=== PATIENT | male | born 1970 | race Caucasian/White ===

== ENCOUNTER 2021-06-24 08:27 | Outpatient (CLI) | payer OTHER, SELFPAY ==
--- NOTE | 2021-06-24 08:15 | XR_ITS ---
WS: [id number] XR KUB [id number] REASON FOR EXAM: UROLITHIASIS FINDINGS: No urinary tract calculi identified. Unremarkable bowel gas pattern. No free air or retroperitoneal air. XR/XR KUB [id number] IMPRESSION: No urinary tract calculi identified.
== END 2021-06-24 08:28 | disposition home or self-care (01) ==
LOC: RAD 08:30
PROVIDERS: PCP Family Medicine; Visit Provider Urology
DX: N20.9 Urinary calculus, unspecified (principal)
CPT/HCPCS: 74018; 81003; 84153

== ENCOUNTER → 2022-12-01 15:46 | Outpatient (BNVA) | payer OTHER, SELFPAY | PROVIDERS: PCP Family Medicine; Visit Provider Family Medicine | DX: N20.9 Urinary calculus, unspecified (principal); I10 Essential (primary) hypertension; E78.00 Pure hypercholesterolemia, unspecified | CPT/HCPCS: 80053; 80061; 83735; 84550; 85025 ==